=== PATIENT | female | born 1945 | race Hispanic/Latino ===

== ENCOUNTER 2021-05-01 10:31 | Inpatient (IN) | payer OTHER, MEDICARE, MEDICAID ==
[2021-05-01] MEDS ORDERED: Acetaminophen/Codeine 30-300mg Tablet PO PRN (13:59)
[2021-05-01] MEDS ORDERED: traMADol HCl 50 MG TAB PO PRN (13:59)
[2021-05-01] MEDS ORDERED: Ondansetron PF 4 MG/2 ML Vial SLOW IVP PRN (13:59)
[2021-05-01] MEDS ORDERED: Fentanyl 100 MCG/2 ML VIAL SLOW IVP PRN (13:59)
[2021-05-01] MEDS ORDERED: Bupivacaine HCl 0.5%/Epinephrine 1:200,000/PF 30 ml Vial ONE (14:00)
[2021-05-01] MEDS ORDERED: Communication Order-Pharmacy FS SCH (14:00)
[2021-05-01] MEDS ORDERED: Fentanyl 100 MCG/2 ML VIAL ONE (14:16)
[2021-05-01] MEDS ORDERED: Midazolam HCl 2 mg/2 ml Vial ONE (14:17)
[2021-05-01] MEDS ORDERED: Promethazine HCl 25 MG/ML VIAL IVPB PRN (15:20)
[2021-05-01] MEDS ORDERED: Ondansetron HCl/PF 4 MG/2 ML Vial IVP PRN (15:20)
[2021-05-01] MEDS ORDERED: Promethazine HCl 25 MG/ML VIAL IM PRN (15:20)
[2021-05-01 18:33] VITALS: BMI 33.6
[2021-05-01] MEDS: CEFAZOLIN 2 GM in Premix Bag 1 BAG IVPB SCH (20:08)
[2021-05-01] MEDS: Acetaminophen 325 MG TAB PO PRN (20:23)
[2021-05-02] MEDS: Acetaminophen 325 MG TAB PO PRN (04:03)
[2021-05-02] MEDS: CEFAZOLIN 2 GM in Premix Bag 1 BAG IVPB SCH (04:04)
[2021-05-02 11:52] VITALS: BP 115/61; TEMP 98
[2021-05-02] MEDS ORDERED: Amoxicillin/Potassium Clav 875 MG TAB PO SCH (21:00)
== END 2021-05-02 12:15 | disposition home or self-care (01) | DRG 512 ==
LOC: SDC 10:31 → SURG A 13:59
PROVIDERS: ADMIT Orthopaedic Surgery; ATTEND Orthopaedic Surgery
PROC: 0PSH04Z Reposition Right Radius with Internal Fixation Device, Open Approach (ICD-10-PCS; principal; 2021-05-01)
PROC: 3E0T3BZ Introduction of Anesthetic Agent into Peripheral Nerves and Plexi, Percutaneous Approach (ICD-10-PCS; 2021-05-01)
DX: S52.511B Displaced fracture of right radial styloid process, initial encounter for open fracture type I or II (principal); W54.0XXA Bitten by dog, initial encounter
CPT/HCPCS: 76000; J0690; J2250; J3010